=== PATIENT | female | born 1935 | race Caucasian/White ===

== ENCOUNTER 2022-02-07 09:28 | Emergency (ER) | payer OTHER ==
[2022-02-07 10:14] VITALS: BP 121/52; PULSE 74; RESP 16; TEMP 98.1; BMI 22.6
[2022-02-07] MEDS ORDERED: DEXAMETHASONE SOD PHOSPHATE 10 MG/1 ML VIAL IVPUSH ONE (10:53)
[2022-02-07] MEDS ORDERED: BEBTELOVIMAB (EUA) 175 MG/2 ML VIAL IVPUSH ONE (10:53)
[2022-02-07] MEDS ORDERED: ACETAMINOPHEN 500 MG TABLET (FP) PO ONE (10:53)
[2022-02-07] MEDS ORDERED: ACETAMINOPHEN 500 MG TABLET (FP) ONE (13:09)
[2022-02-07] MEDS ORDERED: DEXAMETHASONE SOD PHOSPHATE 10 MG/1 ML VIAL ONE (13:09)
== END 2022-02-07 15:30 | disposition home or self-care (01) ==
LOC: JCOVINFU 09:28 → JER 09:28 → JCOVINFU 15:30
PROC: 3E0333Z Introduction of Anti-inflammatory into Peripheral Vein, Percutaneous Approach (ICD-10-PCS; principal; 2022-02-07)
PROC: 3E03329 Introduction of Other Anti-infective into Peripheral Vein, Percutaneous Approach (ICD-10-PCS; 2022-02-07)
DX: U07.1 COVID-19 (principal)
CPT/HCPCS: 71046-TC-FY; 96374; 96375; 99284-25; J1100; M0222; Q0222

== ENCOUNTER 2023-07-03 16:08 | Inpatient (IN) | payer OTHER ==
[2023-07-03 18:13] LABS: BASO % 0.9 % (0-2.0); EOS % 3.5 % (0-4.5); HEMATOCRIT 32.5 % (32.4-45.2); HEMOGLOBIN 10.9 GM/dL (10.7-15.3); LYMPH % 13.6 % (8-40); MCH 30.4 pg (25.7-33.7); MCHC 33.6 g/dl (32.0-36.0); MEAN CELL VOLUME 90.5 fl (80-96); MEAN PLT VOLUME 7.3 fl (7.5-11.1); MONO % 9.8 % (3.8-10.2); NEUT % 72.2 % (42.8-82.8); PLATELET COUNT 391 10^3/uL (134-434); RBC 3.59 M/mm3 (3.60-5.2); RDW 14.9 % (11.6-15.6); WHITE BLOOD COUNT 6.8 K/mm3 (4.0-10.0)
[2023-07-03 18:33] LABS: POTASSIUM 4.8 mmol/L (3.5-5.1)
[2023-07-03 18:40] LABS: CALCIUM 9.5 mg/dL (8.5-10.1)
[2023-07-03 18:41] LABS: ALBUMIN 3.7 g/dl (3.4-5.0); BLOOD UREA NITROGEN 20.4 mg/dL (7-18)
[2023-07-03 18:42] LABS: BILIRUBIN,DIRECT 4.6 mg/dL (0.0-0.2)
[2023-07-03 18:43] LABS: CREATININE 0.9 mg/dL (0.55-1.3)
[2023-07-03 18:44] LABS: BILIRUBIN,TOTAL 7.1 mg/dL (0.2-1)
[2023-07-03 18:45] LABS: BILIRUBIN,TOTAL 7.7 mg/dL (0.2-1); TOT PROT 7.3 g/dl (6.4-8.2)
[2023-07-04] MEDS: DEXTROSE 5%-NORMAL SALINE 1,000 ML IV SCH ×3 (02:53→17:31)
[2023-07-04 03:27] LABS: INR 1.03 (0.83-1.09); PROTHROMBIN TIME (PATIENT) 11.9 SEC (9.7-13.0)
[2023-07-04 03:29] LABS: ACTIVATED PTT 28.2 SECONDS (25.2-36.5)
[2023-07-04 03:46] LABS: PH,URINE 5.5 (5.0-8.0); URINE APPEARANCE CLEAR; URINE BILIRUBIN 2+ (NEGATIVE); URINE COLOR DK YELLOW; URINE GLUCOSE (UA) NEGATIVE (NEGATIVE); URINE KETONE NEGATIVE (NEGATIVE); URINE LEUK ESTERASE TRACE (NEGATIVE); URINE NITRITE NEGATIVE (NEGATIVE); URINE PROTEIN TRACE (NEGATIVE); URINE UROBILINOGEN 0.2 mg/dL (0.2-1.0)
[2023-07-04 07:23] LABS: EPI CELLS 19.9 /uL (0-25.1); HYALINE CASTS 3.23 /uL (0-3.1); URINE RBC 22.2 /uL (0-23.9); URINE WBC 220.7 /uL (0-25.8); YEAST NONE SEEN (NEGATIVE)
[2023-07-04 07:24] LABS: URINE BACTERIA 496.6 /uL (0-1359)
[2023-07-04 08:33] LABS: HEMATOCRIT 28.7 % (32.4-45.2); HEMOGLOBIN 9.9 GM/dL (10.7-15.3); LYMPH % 17.1 % (8-40); MCH 31.2 pg (25.7-33.7); MCHC 34.3 g/dl (32.0-36.0); MEAN CELL VOLUME 90.8 fl (80-96); MEAN PLT VOLUME 7.7 fl (7.5-11.1); MONO % 11.1 % (3.8-10.2); NEUT % 65.8 % (42.8-82.8); PLATELET COUNT 335 10^3/uL (134-434); RBC 3.16 M/mm3 (3.60-5.2); RDW 14.5 % (11.6-15.6); WHITE BLOOD COUNT 5.5 K/mm3 (4.0-10.0)
[2023-07-04 09:00] LABS: POTASSIUM 4.3 mmol/L (3.5-5.1)
[2023-07-04 09:18] LABS: BLOOD UREA NITROGEN 16.9 mg/dL (7-18); MAGNESIUM 2.3 mg/dL (1.8-2.4)
[2023-07-04 09:19] LABS: CREATININE 0.7 mg/dL (0.55-1.3)
[2023-07-04 09:20] LABS: PHOSPHOROUS 3.4 mg/dL (2.5-4.9)
[2023-07-04 09:21] LABS: BILIRUBIN,TOTAL 6.9 mg/dL (0.2-1); TOT PROT 6.2 g/dl (6.4-8.2)
[2023-07-04] MEDS ORDERED: LOSARTAN POTASSIUM 50 MG TABLET PO SCH (10:00)
[2023-07-04] MEDS ORDERED: FENTANYL CITRATE/PF 50 MCG/ML VIAL ONE (14:39)
[2023-07-04] MEDS ORDERED: ONDANSETRON 4 MG/2 ML VIAL IVPUSH PRN ×2 (16:12→16:21)
[2023-07-04] MEDS ORDERED: PROMETHAZINE HCL 25 MG/1 ML VIAL IVPB PRN (16:12)
[2023-07-04] MEDS ORDERED: LACTATED RINGERS SOLUTION 1,000 ML IV SCH (16:15)
[2023-07-04 21:22] VITALS: RESP 18
[2023-07-05] MEDS: DEXTROSE 5%-NORMAL SALINE 1,000 ML IV SCH ×2 (07:49→23:06)
[2023-07-05] MEDS: LOSARTAN POTASSIUM 50 MG TABLET PO SCH (09:43)
[2023-07-05 17:04] VITALS: BMI 21.2
[2023-07-06 08:42] VITALS: BP 128/64; PULSE 77; TEMP 98
[2023-07-06] MEDS: LOSARTAN POTASSIUM 50 MG TABLET PO SCH (09:06)
== END 2023-07-06 12:35 | disposition short-term general hospital (02) | DRG 375 ==
LOC: JER 16:08 → JERBED 07-04 01:56 → J6S 07-04 03:50
PROVIDERS: ADMIT Internal Medicine; ATTEND Family Medicine
PROC: 0FJD8ZZ Inspection of Pancreatic Duct, Via Natural or Artificial Opening Endoscopic (ICD-10-PCS; principal; 2023-07-04 14:56)
DX: D49.0 Neoplasm of unspecified behavior of digestive system (principal); R17 Unspecified jaundice; I10 Essential (primary) hypertension; E78.5 Hyperlipidemia, unspecified; K21.9 Gastro-esophageal reflux disease without esophagitis
CPT/HCPCS: 36415; 74177-TC; 80053; 81003; 82247; 82248; 83605; 83690; 83735; 84100; 85025; 85610; 85730; 87635; 93005; 93010; 94760; 99285-25; Q9967

== ENCOUNTER 2023-09-27 11:27 | Observation (INO) | payer OTHER ==
[2023-09-27 11:57] VITALS: BMI 19.5
[2023-09-27 12:29] LABS: BASO % 0.6 % (0-2.0); EOS % 0.4 % (0-4.5); HEMATOCRIT 29.2 % (32.4-45.2); HEMOGLOBIN 9.7 GM/dL (10.7-15.3); LYMPH % 10.2 % (8-40); MCH 29.9 pg (25.7-33.7); MEAN CELL VOLUME 90.5 fl (80-96); MEAN PLT VOLUME 6.9 fl (7.5-11.1); MONO % 11.7 % (3.8-10.2); NEUT % 77.1 % (42.8-82.8); PLATELET COUNT 323 10^3/uL (134-434); RBC 3.23 M/mm3 (3.60-5.2); RDW 15.3 % (11.6-15.6)
[2023-09-27 12:36] LABS: INR 1.23 (0.83-1.09); PROTHROMBIN TIME (PATIENT) 14.2 SEC (9.7-13.0)
[2023-09-27 12:38] LABS: ACTIVATED PTT 24.4 SECONDS (25.2-36.5)
[2023-09-27 12:50] LABS: POTASSIUM 4.2 mmol/L (3.5-5.1)
[2023-09-27 12:52] LABS: ALBUMIN 2.6 g/dl (3.4-5.0); BLOOD UREA NITROGEN 13.1 mg/dL (7-18); CALCIUM 8.4 mg/dL (8.5-10.1); MAGNESIUM 2.3 mg/dL (1.8-2.4)
[2023-09-27 12:55] LABS: CREATININE 0.6 mg/dL (0.55-1.3)
[2023-09-27 12:56] LABS: PHOSPHOROUS 2.9 mg/dL (2.5-4.9)
[2023-09-27 12:57] LABS: BILIRUBIN,TOTAL 0.5 mg/dL (0.2-1); TOT PROT 6.8 g/dl (6.4-8.2)
[2023-09-27 14:04] LABS: EPI CELLS 4 /uL (0-25.1); HYALINE CASTS 0 /uL (0-3.1); PH,URINE 7.5 (5.0-8.0); URINE APPEARANCE CLEAR; URINE BACTERIA 22 /uL (0-1359); URINE BILIRUBIN NEGATIVE (NEGATIVE); URINE COLOR YELLOW; URINE GLUCOSE (UA) NEGATIVE (NEGATIVE); URINE KETONE NEGATIVE (NEGATIVE); URINE LEUK ESTERASE TRACE (NEGATIVE); URINE NITRITE NEGATIVE (NEGATIVE); URINE PROTEIN NEGATIVE (NEGATIVE); URINE RBC 5 /uL (0-23.9); URINE WBC 14 /uL (0-25.8)
[2023-09-27] MEDS ORDERED: ACETAMINOPHEN INJECTION 100 ML IVPB ONE (14:19)
[2023-09-27] MEDS: ACETAMINOPHEN 1000 MG/100 ML BAG IVPB ONE (14:22)
[2023-09-27] MEDS: SODIUM CHLORIDE 0.9% 500 ML INFUS.BAG IV ONE (15:01)
[2023-09-27] MEDS ORDERED: ASPIRIN 81 MG CHEWABLE TABLETS ONE (15:07)
[2023-09-27] MEDS: ASPIRIN 81 MG CHEWABLE TABLETS PO ONE (15:10)
[2023-09-27] MEDS ORDERED: HEPARIN NA (PORCINE) 5,000 UNITS/ML 1ML VIAL ONE (22:22)
[2023-09-27] MEDS: HEPARIN NA (PORCINE) 5,000 UNITS/ML 1ML VIAL SQ SCH (22:31)
[2023-09-28 08:24] LABS: CHOLESTEROL 120 mg/dL (50-200)
[2023-09-28 08:25] LABS: LDL CHOLESTEROL (ONLY SJRH) 44 mg/dL (5-100)
[2023-09-28 08:26] LABS: HDL CHOLESTEROL 60 mg/dL (40-60)
[2023-09-28 09:25] LABS: CHLORIDE 103 mmol/L (98-107); POTASSIUM 4.5 mmol/L (3.5-5.1); SODIUM 135 mmol/L (136-145)
[2023-09-28 09:28] LABS: CALCIUM 8.1 mg/dL (8.5-10.1)
[2023-09-28 09:29] LABS: ALBUMIN 2.5 g/dl (3.4-5.0); ANION GAP 7 mmol/L (4-13); BLOOD UREA NITROGEN 11.7 mg/dL (7-18); CO2 25 mmol/L (21-32); GLUCOSE,RANDOM 115 mg/dL (74-106)
[2023-09-28 09:31] LABS: CREATININE 0.6 mg/dL (0.55-1.3); IRON SERUM 13 ug/dL (50-175); SGPT/ALT 52 U/L (13-61)
[2023-09-28 09:32] LABS: SGOT/AST 37 U/L (15-37); TOTAL IRON BINDING CAPACITY 210 ug/dL (250-450)
[2023-09-28 09:33] LABS: BILIRUBIN,TOTAL 0.5 mg/dL (0.2-1); TOT PROT 6.5 g/dl (6.4-8.2)
[2023-09-28 09:34] LABS: ALK PHOS 239 U/L (45-117)
[2023-09-28 09:38] LABS: BASO % 0.8 % (0-2.0); EOS % 0.8 % (0-4.5); HEMATOCRIT 27.6 % (32.4-45.2); HEMOGLOBIN 9.3 GM/dL (10.7-15.3); LYMPH % 15.9 % (8-40); MCH 30.2 pg (25.7-33.7); MCHC 33.6 g/dl (32.0-36.0); MEAN CELL VOLUME 89.8 fl (80-96); MEAN PLT VOLUME 7.6 fl (7.5-11.1); MONO % 9.3 % (3.8-10.2); NEUT % 73.2 % (42.8-82.8); PLATELET COUNT 329 10^3/uL (134-434); RBC 3.07 M/mm3 (3.60-5.2); RDW 15.2 % (11.6-15.6)
[2023-09-28] MEDS: LOSARTAN POTASSIUM 50 MG TABLET PO SCH (10:54)
[2023-09-28] MEDS: POLYETHYLENE GLYCOL (HEALTHYLAX) 3350 17 GM PACKET PO SCH (15:17)
[2023-09-28] MEDS: IRON SUCROSE INJECTION 200 MG in SODIUM CHLORIDE 100 ML IVPB ONE (18:01)
[2023-09-28] MEDS: ACETAMINOPHEN 325 MG TABLET (FP) PO PRN (22:31)
[2023-09-29 07:31] LABS: POTASSIUM 4.1 mmol/L (3.5-5.1)
[2023-09-29 07:34] LABS: BASO % 0.7 % (0-2.0); CALCIUM 8.1 mg/dL (8.5-10.1); EOS % 2.5 % (0-4.5); HEMATOCRIT 27.1 % (32.4-45.2); HEMOGLOBIN 9.1 GM/dL (10.7-15.3); LYMPH % 14.3 % (8-40); MCH 30.1 pg (25.7-33.7); MCHC 33.6 g/dl (32.0-36.0); MEAN CELL VOLUME 89.5 fl (80-96); MEAN PLT VOLUME 7.6 fl (7.5-11.1); MONO % 10.1 % (3.8-10.2); NEUT % 72.4 % (42.8-82.8); PLATELET COUNT 343 10^3/uL (134-434); RBC 3.03 M/mm3 (3.60-5.2); RDW 14.9 % (11.6-15.6); RETICULOCYTES 0.69 % (0.5-1.5); WHITE BLOOD COUNT 10.4 K/mm3 (4.0-10.0)
[2023-09-29 07:35] LABS: ALBUMIN 2.3 g/dl (3.4-5.0); BLOOD UREA NITROGEN 12.5 mg/dL (7-18)
[2023-09-29 07:37] LABS: CREATININE 0.6 mg/dL (0.55-1.3)
[2023-09-29 07:39] LABS: BILIRUBIN,TOTAL 0.5 mg/dL (0.2-1); TOT PROT 6.4 g/dl (6.4-8.2)
[2023-09-29] MEDS: LIDOCAINE 4% PATCH TP SCH (09:43)
[2023-09-29 09:49] VITALS: BP 117/48; PULSE 80; RESP 20; TEMP 97.5
[2023-09-29] MEDS ORDERED: LIDOCAINE PATCH REMOVAL MC SCH (22:00)
== END 2023-09-29 14:37 | disposition home health service (06) ==
LOC: JER 11:27 → EDBD 11:27 → UNDOADMOB 13:46 → JERBED 13:46 → INTOOBSV 16:32 → EDBD 16:32 → OBSVTOIN 16:32 → JERBED 09-28 06:33 → J4W 09-28 06:33 → JERBED 09-28 13:58 → J4W 09-28 13:58
PROVIDERS: ADMIT Family Medicine; ATTEND Family Medicine
PROC: 3E033NZ Introduction of Analgesics, Hypnotics, Sedatives into Peripheral Vein, Percutaneous Approach (ICD-10-PCS; principal; 2023-09-28)
PROC: 3E033GC Introduction of Other Therapeutic Substance into Peripheral Vein, Percutaneous Approach (ICD-10-PCS; 2023-09-28)
PROC: 3E0337Z Introduction of Electrolytic and Water Balance Substance into Peripheral Vein, Percutaneous Approach (ICD-10-PCS; 2023-09-28)
DX: E87.1 Hypo-osmolality and hyponatremia (principal); R53.1 Weakness; I10 Essential (primary) hypertension; E78.5 Hyperlipidemia, unspecified; R77.8 Other specified abnormalities of plasma proteins; D50.9 Iron deficiency anemia, unspecified; Z90.410 Acquired total absence of pancreas; Z90.49 Acquired absence of other specified parts of digestive tract; R79.89 Other specified abnormal findings of blood chemistry; Z86.79 Personal history of other diseases of the circulatory system; K59.00 Constipation, unspecified; R55 Syncope and collapse
CPT/HCPCS: 0241U-QW; 36415; 70450-TC; 71045-TC-FY; 80053; 80061; 81003; 82607; 83036; 83540; 83550; 83605; 83690; 83735; 84100; 84443; 84484; 85025; 85045; 85610; 85730; 86140; 86301; 86850; 86900; 86901; 87040; 87086; 93005; 93010; 93306-TC; 96365; 96375; 97116-GP; 97161-GP; 99285-25; G0378; J0131; J1644; J1756

== ENCOUNTER 2023-10-26 18:03 | Inpatient (IN) | payer OTHER ==
[2023-10-26 19:00] LABS: BASO % 0.5 % (0-2.0); EOS % 0.3 % (0-4.5); HEMATOCRIT 28.8 % (32.4-45.2); HEMOGLOBIN 9.3 GM/dL (10.7-15.3); MCH 29.7 pg (25.7-33.7); MCHC 32.3 g/dl (32.0-36.0); MONO % 11.5 % (3.8-10.2); NEUT % 80.7 % (42.8-82.8); PLATELET COUNT 201 10^3/uL (134-434); RBC 3.13 M/mm3 (3.60-5.2); RDW 17.5 % (11.6-15.6); WHITE BLOOD COUNT 17.7 K/mm3 (4.0-10.0)
[2023-10-26 19:04] LABS: VENOUS BASE EXCESS -0.6 mmol/L (-2-2); VENOUS O2 SATURATION 38.5 % (70-80); VENOUS PCO2 38.1 mmHg (38-52); VENOUS PH 7.414 (7.310-7.410)
[2023-10-26 19:13] LABS: INR 1.75 (0.83-1.09); PROTHROMBIN TIME (PATIENT) 20.2 SEC (9.7-13.0)
[2023-10-26 19:35] LABS: POTASSIUM 4.7 mmol/L (3.5-5.1)
[2023-10-26 19:37] LABS: CALCIUM 8.3 mg/dL (8.5-10.1)
[2023-10-26 19:38] LABS: BLOOD UREA NITROGEN 36.2 mg/dL (7-18)
[2023-10-26] MEDS: LACTATED RINGERS SOLUTION 1000 ML INFUS.BAG IV ONE (19:38)
[2023-10-26] MEDS: ACETAMINOPHEN 1000 MG/100 ML BAG IVPB ONE (19:39)
[2023-10-26 19:42] LABS: BILIRUBIN,TOTAL 0.6 mg/dL (0.2-1); TOT PROT 6.2 g/dl (6.4-8.2)
[2023-10-26] MEDS ORDERED: VANCOMYCIN 1 GRAM (PRE-DOCKED) 1,000 MG/250 ML BAG IVPB ONE (20:00)
[2023-10-26] MEDS ORDERED: PIPERACILLIN/TAZOB 4.5 GM 4.5 GM/100 ML BAG IVPB ONE (20:00)
[2023-10-26] MEDS: PIPERACILLIN/TAZOB 4.5 GM 4.5 GM in DEXTROSE 5%-WATER 100 ML IVPB ONE (20:19)
[2023-10-26 20:32] LABS: EPI CELLS 4 /uL (0-25.1); HYALINE CASTS 1 /uL (0-3.1); PH,URINE 5.5 (5.0-8.0); URINE APPEARANCE CLEAR; URINE BACTERIA 2 /uL (0-1359); URINE BILIRUBIN NEGATIVE (NEGATIVE); URINE COLOR YELLOW; URINE GLUCOSE (UA) NEGATIVE (NEGATIVE); URINE KETONE NEGATIVE (NEGATIVE); URINE LEUK ESTERASE NEGATIVE (NEGATIVE); URINE NITRITE NEGATIVE (NEGATIVE); URINE PROTEIN 1+ (NEGATIVE); URINE RBC 37 /uL (0-23.9); URINE WBC 6 /uL (0-25.8)
[2023-10-26] MEDS: VANCOMYCIN 1,000 MG in DEXTROSE 5%-WATER - 250 ML IVPB ONE (22:02)
[2023-10-26] MEDS ORDERED: ASPIRIN 325 MG TABLET ONE (22:32)
[2023-10-26] MEDS: ASPIRIN 325 MG TABLET PO ONE (22:35)
[2023-10-26] MEDS: HEPARIN NA (PORCINE) 5,000 UNITS/ML 1ML VIAL IVPUSH ONE (23:17)
[2023-10-26] MEDS: HEPARIN INFUSION - 25,000 UNITS/500 ML INFUS.BAG IVPB SCH (23:21)
[2023-10-26] MEDS: NOREPINEPHRINE BITARTRATE/D5W 8 MG/250 ML BAG IVPB SCH (23:34)
[2023-10-27] MEDS ORDERED: NOREPINEPHRINE BITARTRATE 4 MG/4 ML ML IV ONE (00:50)
[2023-10-27] MEDS ORDERED: HUM PROTHROMBIN CPLX(PCC)4FACT 1,000 UNIT/40 ML VIAL IV ONE (01:30)
[2023-10-27 01:32] VITALS: TEMP 97.6; BMI 20.9
[2023-10-27] MEDS: NOREPINEPHRINE BITARTRATE 4,000 MCG in DEXTROSE 5%-WATER - 496 ML IV SCH (02:05)
[2023-10-27 02:23] LABS: BASO % 0.4 % (0-2.0); EOS % 0.4 % (0-4.5); HEMATOCRIT 26.3 % (32.4-45.2); HEMOGLOBIN 8.7 GM/dL (10.7-15.3); LYMPH % 9.4 % (8-40); MCH 29.9 pg (25.7-33.7); MEAN CELL VOLUME 90.7 fl (80-96); MEAN PLT VOLUME 8.1 fl (7.5-11.1); MONO % 11.8 % (3.8-10.2); PLATELET COUNT 202 10^3/uL (134-434); RBC 2.91 M/mm3 (3.60-5.2); RDW 16.7 % (11.6-15.6); WHITE BLOOD COUNT 16.8 K/mm3 (4.0-10.0)
[2023-10-27 02:31] LABS: INR 1.72 (0.83-1.09); PROTHROMBIN TIME (PATIENT) 19.8 SEC (9.7-13.0)
[2023-10-27 02:34] LABS: ACTIVATED PTT 25.4 SECONDS (25.2-36.5)
[2023-10-27] MEDS: PROTAMINE SULFATE 50 MG/5 ML VIAL IVPUSH ONE (02:47)
[2023-10-27 02:49] LABS: CHLORIDE 100 mmol/L (98-107); POTASSIUM 4.4 mmol/L (3.5-5.1); SODIUM 130 mmol/L (136-145)
[2023-10-27 02:50] LABS: ANION GAP 6 mmol/L (4-13); BLOOD UREA NITROGEN 32.2 mg/dL (7-18); CO2 24 mmol/L (21-32); GLUCOSE,RANDOM 156 mg/dL (74-106); MAGNESIUM 2.2 mg/dL (1.8-2.4)
[2023-10-27 02:54] LABS: CREATININE 0.9 mg/dL (0.55-1.3); PHOSPHOROUS 2.8 mg/dL (2.5-4.9)
[2023-10-27 03:25] VITALS: BP 128/57; PULSE 145; RESP 15
[2023-10-27] MEDS ORDERED: PANTOPRAZOLE 20 MG TABLET PO SCH (10:00)
[2023-10-27] MEDS ORDERED: MUPIROCIN 2% TOPICAL OINTMENT FOR DECOLONIZATION NS SCH (10:00)
[2023-10-27] MEDS ORDERED: CHLORHEXIDINE GLUCONATE 4% CLEANSER FOR DECOLONIZATION TP SCH (22:00)
== END 2023-10-27 03:35 | disposition short-term general hospital (02) | DRG 280 ==
LOC: JER 18:03 → JERBED 23:22 → JICU 10-27 00:45
PROVIDERS: ADMIT Internal Medicine Pulmonary Disease; ATTEND Internal Medicine Pulmonary Disease
DX: I21.4 Non-ST elevation (NSTEMI) myocardial infarction (principal); I61.1 Nontraumatic intracerebral hemorrhage in hemisphere, cortical; R57.9 Shock, unspecified; J98.11 Atelectasis; C25.7 Malignant neoplasm of other parts of pancreas; C78.7 Secondary malignant neoplasm of liver and intrahepatic bile duct; E78.5 Hyperlipidemia, unspecified; I10 Essential (primary) hypertension; R41.82 Altered mental status, unspecified
CPT/HCPCS: 0241U-QW; 36415; 70450-TC; 70496-TC; 70498-TC; 71045-TC-FY; 71275-TC; 74177-TC; 80048; 80053; 81003; 82550; 82803; 83605; 83690; 83735; 84100; 84484; 85025; 85610; 85730; 86850; 86900; 86901; 87040; 87086; 93005; 93010; 99291; J0131; J1644; J2597; Q9967